=== PATIENT | female | born 1995 | race Caucasian/White ===

== ENCOUNTER 2023-10-24 00:21 | Emergency (ER) | payer BC, MEDICAID ==
[~2023-10-24] VITALS: Ht 182.9 cm; Wt 157.5 kg
[2023-10-24] MEDS ORDERED: PRED20TA2 PO (04:33)
[2023-10-24] MEDS ORDERED: BACL10TA PO (04:33)
[2023-10-24] MEDS ORDERED: ALBUAER3 IN (04:33)
[2023-10-24] MEDS ORDERED: AZITTAB PO (04:33)
[2023-10-24] MEDS ORDERED: BENZ200C64 PO (04:33)
[2023-10-24] MEDS ORDERED: HYDR-4902 PO (04:33)
[2023-10-24] MEDS: ALBUTEROL SULF 2.5 MG/0.5ML(0.5%) NEB SOLN NEB ONE (04:46)
[2023-10-24] MEDS: IPRATROPIUM BROM 0.5 MG/2.5ML INH SOL NEB ONE (04:46)
[2023-10-24] MEDS: methylPREDNISolone SOD SUCC 125 MG/2 ML VL IM ONE (04:56)
[2023-10-24] MEDS: HYDROcodone-ACET 5/325MG TAB PO ONE (04:56)
[2023-10-24] MEDS: ONDANSETRON ODT 4 MG TAB PO ONE (04:56)
[2023-10-24 05:02] VITALS: BP 125/58; PULSE 97; RESP 18; TEMP 98.6; O2SAT 96
== END 2023-10-24 05:04 | disposition home or self-care (01) ==
LOC: ER 00:21
DX: S29.011A Strain of muscle and tendon of front wall of thorax, initial encounter (principal); J45.909 Unspecified asthma, uncomplicated; R07.81 Pleurodynia; X58.XXXA Exposure to other specified factors, initial encounter; Y93.89 Activity, other specified; Y92.89 Other specified places as the place of occurrence of the external cause; Y99.8 Other external cause status
CPT/HCPCS: 71111; 96372; 99283; J2919; J7644; 94640